=== PATIENT | female | born 1955 | race Two or more races ===

== ENCOUNTER 2017-11-10 12:25 | Day surgery (SDC) | payer OTHER ==
[~2017-11-10 12:25] MED LIST: CEFAZOLIN 1 GM INJ; GLYCOPYRROLATE 0.4 MG INJ; LIDOCAINE 2% (SDV) 5 ML INJ; NEOSTIGMINE 3 MG/3 ML SYRINGE
[2017-11-10 14:27] LABS: ADD MAN DIFF? NO
[2017-11-10 14:28] LABS: BASOPHILS % 0.4 % (0.0-2.0); EOSINOPHILS % 0.6 % (0.0-7.0); HEMATOCRIT 41.2 % (37.0-47.0); HEMOGLOBIN 13.8 g/dl (12.0-16.0); LYMPHOCYTES # 1.8 10^3/ul (0.8-2.9); LYMPHOCYTES % 35.3 % (15.0-51.0); MEAN CORPUSCULAR HEMOGLOBIN 29.9 pg (29.0-33.0); MEAN CORPUSCULAR HGB CONC 33.5 g/dl (32.0-37.0); MEAN CORPUSCULAR VOLUME 89.4 fl (82.0-101.0); MEAN PLATELET VOLUME 11.1 fl (7.4-10.4); MONOCYTE # 0.4 10^3/ul (0.3-0.9); MONOCYTES % 8.5 % (0.0-11.0); NEUTROPHIL # 2.8 10^3/ul (1.6-7.5); PLATELET COUNT 211 10^3/UL (140-415); RED BLOOD COUNT 4.61 10^6/ul (4.20-5.40); RED CELL DISTRIBUTION WIDTH 11.7 % (11.5-14.5)
[2017-11-10 14:28] LABS: WHITE BLOOD COUNT 5.1 10^3/ul (4.8-10.8)
[2017-11-10 14:59] LABS: ALANINE AMINOTRANSFERASE 23 IU/L (13-69); ALBUMIN 4.3 g/dl (3.3-4.9); ALBUMIN/GLOBULIN RATIO 1.26; ALKALINE PHOSPHATASE 79 IU/L (42-121); ANION GAP 17 (8-16); ASPARTATE AMINO TRANSFERASE 22 IU/L (15-46); BILIRUBIN,INDIRECT 0.3 mg/dl (0-1.1); BILIRUBIN,TOTAL 0.3 mg/dl (0.2-1.3); CARBON DIOXIDE 28 mmol/L (21-31); CHLORIDE 103 mmol/L (97-110); GLUCOSE 92 mg/dl (70-220); TOTAL PROTEIN 7.7 g/dl (6.1-8.1)
[2017-11-10] MEDS: CEFAZOLIN 1 GM/50 ML (PMX) 50 ML IVPB (15:00)
[2017-11-10] MEDS: SOD CHLORIDE 0.9% 1,000 ML IV (15:00)
[2017-11-10 15:01] LABS: BLOOD UREA NITROGEN 17 mg/dl (7-20); CALCIUM 9.4 mg/dl (8.4-10.2); POTASSIUM 4.2 mmol/L (3.5-5.1); SODIUM 144 mmol/L (135-144)
[2017-11-10 15:35] LABS: INR 0.93; PARTIAL THROMBOPLASTIN TIME 28.1 Sec (25.0-35.0); PROTIME 12.6 Sec (11.9-14.9)
[2017-11-10] MEDS ORDERED: ISOSULFAN BLUE 1% 5 ML INJ SC (16:10)
[2017-11-10] MEDS ORDERED: PROPOFOL 100 ML (16:27)
[2017-11-10] MEDS ORDERED: MEPERIDINE 25 MG INJ IV (16:30)
[2017-11-10] MEDS ORDERED: hydrALAzine 20 MG INJ IV ×2 (16:30→22:00)
[2017-11-10] MEDS ORDERED: EPHEDrine SULFATE 50 MG/5 ML SYG IV (16:30)
[2017-11-10] MEDS ORDERED: DIPHENHYDRAMINE 50 MG INJ IV (16:30)
[2017-11-10] MEDS ORDERED: HYDROmorphONE (0.2 MG/ML) 10ML SYG IV ×3 (16:30)
[2017-11-10] MEDS ORDERED: KETOROLAC 30 MG INJ IV (16:30)
[2017-11-10] MEDS ORDERED: FENTAnyl 50 MCG/ML VIAL IV ×2 (16:30)
[2017-11-10] MEDS ORDERED: ONDANSETRON 4 MG INJ IV ×3 (16:30→22:00)
[2017-11-10] MEDS ORDERED: OXYCODONE/ACETAMINOPHEN (5/325) TAB PO ×2 (16:30)
[2017-11-10] MEDS ORDERED: METOCLOPRAMIDE 10 MG INJ IV (16:30)
[2017-11-10] MEDS ORDERED: LABETALOL HCL 20MG INJ IV (16:30)
[2017-11-10] MEDS ORDERED: morphine 2 MG INJ IV (17:00)
[2017-11-10] MEDS ORDERED: ACETAMINOPHEN 1000MG/100ML IV 100 ML IVPB (17:00)
[2017-11-10] MEDS: ISOSULFAN BLUE 1% 5 ML INJ SC (17:01)
[2017-11-10] MEDS ORDERED: ONDANSETRON 4 MG INJ (17:45)
[2017-11-10] MEDS ORDERED: DEXAMETHASONE 4 MG/ML 1 ML INJ (17:45)
[2017-11-10] MEDS ORDERED: ROCURONIUM 50 MG INJ (17:47)
[2017-11-10] MEDS ORDERED: ALBUTEROL 0.5% (NEB) 2.5 MG/0.5 ML AMP (18:19)
[2017-11-10] MEDS: ALBUTEROL 0.083% (NEB) 2.5 MG/3 ML AMP HHN (18:32)
[2017-11-10] MEDS: FENTAnyl 50 MCG/ML VIAL IV (18:32)
[2017-11-10] MEDS: MIDAZOLAM 1 MG/ML 2 ML INJ IV ×2 (18:41→19:19)
[2017-11-10] MEDS ORDERED: HYDROCODONE/APAP (5/325) TAB PO (22:00)
[2017-11-10] MEDS ORDERED: ALBUTEROL 0.083% (NEB) 2.5 MG/3 ML AMP HHN (22:00)
[2017-11-10] MEDS ORDERED: ACETAMINOPHEN 325 MG TAB PO (22:00)
[2017-11-10] MEDS: D5W-0.45 NACL + KCL 20 MEQ 1,000 ML IV ×2 (22:08→23:49)
[2017-11-10] MEDS: clonAZEPAM 0.5 MG TAB PO (22:09)
[2017-11-11] MEDS: D5W-0.45 NACL + KCL 20 MEQ 1,000 ML IV (05:04)
[2017-11-11 05:19] LABS: ADD MAN DIFF? NO
[2017-11-11 05:24] LABS: WHITE BLOOD COUNT 7.9 10^3/ul (4.8-10.8)
[2017-11-11 05:24] LABS: BASOPHILS % 0.1 % (0.0-2.0); HEMATOCRIT 35.5 % (37.0-47.0); HEMOGLOBIN 11.7 g/dl (12.0-16.0); LYMPHOCYTES # 0.8 10^3/ul (0.8-2.9); LYMPHOCYTES % 10.6 % (15.0-51.0); MEAN CORPUSCULAR HEMOGLOBIN 29.5 pg (29.0-33.0); MEAN CORPUSCULAR VOLUME 89.4 fl (82.0-101.0); MEAN PLATELET VOLUME 11.5 fl (7.4-10.4); MONOCYTE # 0.4 10^3/ul (0.3-0.9); MONOCYTES % 4.8 % (0.0-11.0); NEUTROPHIL # 6.7 10^3/ul (1.6-7.5); NEUTROPHILS % 84.1 % (39.0-77.0); PLATELET COUNT 183 10^3/UL (140-415); RED BLOOD COUNT 3.97 10^6/ul (4.20-5.40); RED CELL DISTRIBUTION WIDTH 11.9 % (11.5-14.5)
[2017-11-11 06:05] LABS: ANION GAP 14 (8-16); BLOOD UREA NITROGEN 16 mg/dl (7-20); CALCIUM 8.8 mg/dl (8.4-10.2); CARBON DIOXIDE 24 mmol/L (21-31); CHLORIDE 109 mmol/L (97-110); CREATININE 0.86 mg/dl (0.44-1.00); GLUCOSE 197 mg/dl (70-220); POTASSIUM 4.4 mmol/L (3.5-5.1); SODIUM 143 mmol/L (135-144)
== END 2017-11-11 14:01 | disposition home or self-care (01) ==
LOC: REC 20:00 → SDS 16:49 → MS1 20:00 → SDS 12:25 → REC 16:49 → MS1 20:00 → SDS 11-11 14:01
DX: C50.912 Malignant neoplasm of unspecified site of left female breast (principal); C77.3 Secondary and unspecified malignant neoplasm of axilla and upper limb lymph nodes; J45.909 Unspecified asthma, uncomplicated; F41.8 Other specified anxiety disorders
CPT/HCPCS: 19301; 71045; 80048; 80053; 85025; 85610; 85730; 88307; 93005; 94664

== ENCOUNTER 2018-01-05 07:28 | Day surgery (SDC) | payer OTHER ==
[2018-01-05] MEDS ORDERED: CEFAZOLIN 1 GM/50 ML (PMX) 50 ML IVPB (09:31)
[2018-01-05] MEDS: DIPHENHYDRAMINE 50 MG INJ (09:31)
[2018-01-05] MEDS: SOD CHLORIDE 0.9% 1,000 ML IV (10:20)
[2018-01-05] MEDS: CEFAZOLIN 1 GM/50 ML (PMX) 50 ML IVPB (10:25)
[2018-01-05] MEDS ORDERED: PROPOFOL 20 ML (10:43)
[2018-01-05] MEDS ORDERED: MIDAZOLAM 1 MG/ML 2 ML INJ (10:43)
[2018-01-05] MEDS: FENTAnyl 50 MCG/ML VIAL (10:55)
[2018-01-05] MEDS: LIDOCAINE 1%/EPI 30 ML INJ (11:14)
[2018-01-05] MEDS ORDERED: ONDANSETRON 4 MG INJ (11:20)
[2018-01-05] MEDS: HEPARIN 1000 UNITS/ML 10 ML INJ (11:25)
[2018-01-05] MEDS ORDERED: FENTAnyl 50 MCG/ML VIAL IV (12:30)
[2018-01-05] MEDS ORDERED: ONDANSETRON 4 MG INJ IV (12:30)
== END 2018-01-05 14:36 | disposition home or self-care (01) ==
LOC: SDS 07:28
DX: C50.912 Malignant neoplasm of unspecified site of left female breast (principal)
CPT/HCPCS: 36561; 76942; 93306